=== PATIENT | female | born 1985 | race Caucasian/White ===

== ENCOUNTER 2017-02-27 18:32 | Emergency (ER) | payer OTHER ==
[2017-02-27] MEDS ORDERED: NASAL DECONGEST30 M3 PO (18:45)
[2017-02-27] MEDS ORDERED: CYCLOBENZAPRINE5 M1 PO (20:26)
[2017-02-27] MEDS ORDERED: NORCO 5-325 TA1 EACH PO (20:26)
== END 2017-02-27 20:54 ==
LOC: EDMED 18:32
DX: S16.1XXA Strain of muscle, fascia and tendon at neck level, initial encounter (principal); V49.40XA Driver injured in collision with unspecified motor vehicles in traffic accident, initial encounter; Y92.410 Unspecified street and highway as the place of occurrence of the external cause